=== PATIENT | male | born 1995 | race Asian ===

== ENCOUNTER 2024-09-19 17:04 | Emergency (ER) | payer SELFPAY ==
[2024-09-19] MEDS ORDERED: Boostrix 0.5 ML (Tdap) VIAL (>/=7 yrs of age) ONE (17:14)
[2024-09-19] MEDS ORDERED: Ketorolac Tromethamine 30 MG (1 mL) VIAL ONE (17:18)
[2024-09-19] MEDS ORDERED: Bacitracin 1 PK ONE (18:05)
[2024-09-19] MEDS ORDERED: Lidocaine 1% w/Epinephrine 1:100K 20 ML VIAL ONE (18:07)
== END 2024-09-19 18:51 | disposition home or self-care (01) ==
LOC: ERS 17:04
DX: S06.0X0A Concussion without loss of consciousness, initial encounter (principal); S01.112A Laceration without foreign body of left eyelid and periocular area, initial encounter; Z23 Encounter for immunization; W01.10XA Fall on same level from slipping, tripping and stumbling with subsequent striking against unspecified object, initial encounter
CPT/HCPCS: 12011; 70450; 72125; 90471; 90715; 96374; J1885